=== PATIENT | female | born 1960 | race Caucasian/White ===

== ENCOUNTER → 2019-07-18 | Day surgery (SDC) | payer BC ==
--- NOTE | 2019-07-19 17:57 | PATH ---
Surgical Pathology Report Patient Name: MICHAEL FERGUSON [facility]. Rec. #: [id number] /Age/Gender: 1960 (Age: 58) / F Account: [id number] Location: [facility] Taken: 07/18/2019 Received: 07/18/2019 Reported: 07/19/2019 Physicians: Wiliam Gonzalez M.D. Specimen(s) Received LEFT BREAST WITH CALCIFICATIONS Clinical History Nonpalpable lesion, microcalcification, suspicious mammographic findings Final Diagnosis BREAST, LEFT, DENSITY WITH CALCIFICATIONS, STEREOTACTIC CORE BIOPSY: BENIGN BREAST PARENCHYMA WITH STROMAL FIBROSIS, MICROCYSTS, USUAL DUCTAL HYPERPLASIA, SCLEROSING ADENOSIS, AND ASSOCIATED MICROCALCIFICATIONS. Electronically Signed Yojana Hollis M.D. Gross Description Received in formalin labeled "left breast density with calcifications" are multiple flores-yellow, cylindrical portions of fibroadipose tissue ranging from 0.5 x 1.5 cm in length, averaging 0.3 cm diameter, and 2 x 2 x 0.3 cm in aggregate. The specimens are submitted in toto in 2 cassettes. Time to formalin fixation: <1 minute Total formalin fixation time: Between 7-8 hours. MLSZ/07/18/2019 duncan/07/18/2019
== END | disposition home or self-care (01) ==
LOC: FMAMMOTONE 10:59
PROVIDERS: ATTEND Internal Medicine
PROC: 0HBU3ZX Excision of Left Breast, Percutaneous Approach, Diagnostic (ICD-10-PCS; principal; 2019-07-18)
DX: N60.32 Fibrosclerosis of left breast (principal); N60.22 Fibroadenosis of left breast; N60.82 Other benign mammary dysplasias of left breast; N64.89 Other specified disorders of breast; R92.1 Mammographic calcification found on diagnostic imaging of breast
CPT/HCPCS: 19081; 88305-TC

== ENCOUNTER → 2020-08-03 | Day surgery (SDC) | payer BC ==
--- NOTE | 2020-08-04 10:41 | PATH ---
Surgical Pathology Report Patient Name: MICHAEL FERGUSON [facility]. Rec. #: [id number] /Age/Gender: 1960 (Age: 59) / F Account: [id number] Location: RADIOLOGY [facility] Taken: 08/03/2020 Received: 08/03/2020 Reported: 08/04/2020 Physicians: Cary Tsai M.D. Specimen(s) Received BREAST, RIGHT, 9-10:00, AREA OF SHADOWING, ULTRASOUND GUIDED CORE BIOPSY Clinical History Nonpalpable lesion Ultrasound findings: Probably benign Surgical scar in area Final Diagnosis BREAST, RIGHT, 9-10:00, AREA OF SHADOWING, ULTRASOUND GUIDED CORE BIOPSY: BENIGN BREAST PARENCHYMA WITH DENSE STROMAL FIBROSIS. Electronically Signed Yojana Hollis M.D. Gross Description Received in formalin labeled "right breast 9-10:00 " are 3 flores-yellow, cylindrical portions of fibroadipose tissue ranging from 0.3-1.0 cm in length and averaging 0.1 cm in diameter. The specimens are submitted in toto in one cassette. Time to formalin fixation: Less than one minute Total formalin fixation time: Approximately 7 hours. /08/03/2020 saudi/08/03/2020
== END | disposition home or self-care (01) ==
LOC: JRADUS-SUR 10:01
PROVIDERS: ATTEND Internal Medicine
PROC: 0H9T3ZX Drainage of Right Breast, Percutaneous Approach, Diagnostic (ICD-10-PCS; principal; 2020-08-03)
DX: D48.61 Neoplasm of uncertain behavior of right breast (principal); N60.31 Fibrosclerosis of right breast
CPT/HCPCS: 19083; 88305-TC

== ENCOUNTER 2021-01-03 10:32 | Emergency (ER) | payer BC ==
[2021-01-03 10:44] VITALS: BP 137/83; PULSE 98; TEMP 97.9; BMI 21.8
[2021-01-03] MEDS ORDERED: LIDOCAINE 5% TOPICAL PATCH TP ONE (11:23)
[2021-01-03] MEDS ORDERED: KETOROLAC TROMETHAMINE 60 MG/2 ML VIAL IM ONE (11:23)
[2021-01-03] MEDS ORDERED: LIDOCAINE 5% TOPICAL PATCH ONE (11:29)
[2021-01-03] MEDS ORDERED: KETOROLAC TROMETHAMINE 30 MG/1 ML VIAL ONE (11:30)
== END 2021-01-03 12:47 | disposition home or self-care (01) ==
LOC: JER 10:32 → JERFT 10:32
PROC: 3E0233Z Introduction of Anti-inflammatory into Muscle, Percutaneous Approach (ICD-10-PCS; principal; 2021-01-03)
DX: R07.81 Pleurodynia (principal)
CPT/HCPCS: 71101-TC-LT-FY; 99284-25